=== PATIENT | female | born 1970 | race Caucasian/White ===

== ENCOUNTER 2024-02-25 09:07 | Day surgery (SDC) | payer OTHER ==
[2024-02-25] MEDS ORDERED: DIPRIVAN 200 MG/20 ML IV ONE (10:53)
--- NOTE | 2024-02-25 11:40 | XRAY ---
13 seconds of fluoroscopy was used in surgery for a bilateral greater trochanteric bursa injection.
--- NOTE | 2024-02-25 11:41 | XRAY ---
Indication: Bilateral greater trochanter bursa injection. Intraoperative fluoroscopy provided for 13 seconds. 2 digital spot images submitted for interpretation demonstrates needle tips projecting lateral to left and right greater trochanters. Small amount of contrast injected for needle tip placement. Correlate with intraoperative findings/report.
[2024-02-25] MEDS ORDERED: Lactated Ringers 1,000 ML IV ONE (12:08)
== END 2024-02-25 11:23 | disposition home or self-care (01) ==
LOC: SDC-PAIN 09:07
PROVIDERS: ATTEND Psychiatry & Neurology Pain Medicine
DX: M70.62 Trochanteric bursitis, left hip (principal); M70.61 Trochanteric bursitis, right hip; R73.03 Prediabetes
CPT/HCPCS: 20610; 73521; 77002; 82947; J2704; Q9966